=== PATIENT | female | born 1980 | race Caucasian/White ===

== ENCOUNTER → 2023-07-05 18:05 | Outpatient (REF) | payer BC, SELFPAY | LOC: WDC 18:05 | PROVIDERS: ATTENDING PHYSICIAN Nurse Practitioner Family; FAMILY PHYSICIAN Obstetrics & Gynecology | DX: Z12.31 Encounter for screening mammogram for malignant neoplasm of breast (principal) | CPT/HCPCS: 77063; 77067 ==

== ENCOUNTER → 2023-07-16 08:19 | Outpatient (REF) | payer BC, SELFPAY | LOC: WDC 08:19 | PROVIDERS: ATTENDING PHYSICIAN Nurse Practitioner Family | DX: R92.8 Other abnormal and inconclusive findings on diagnostic imaging of breast (principal) | CPT/HCPCS: 76642 ==